=== PATIENT | female | born 1980 | race Two or more races ===

== ENCOUNTER 2018-01-19 11:16 | Emergency (ER) | payer OTHER | END 2018-01-19 15:25 | disposition home or self-care (01) | LOC: ER 11:16 | DX: M25.522 Pain in left elbow (principal) | CPT/HCPCS: 99283 ==

== ENCOUNTER 2019-06-23 22:55 | Emergency (ER) | payer OTHER ==
[~2019-06-23] VITALS: Ht 162.6 cm; Wt 49.9 kg
[~2019-06-23 22:55] MED LIST: OXYC1TAB15 PO
--- NOTE | 2019-06-23 23:11 | PHYS DOC ---
Adult General Chief Complaint Chief Complaint: HEADACHE HPI HPI Patient is a 38 year old female who presents to the ED today complaining of a throbbing 9-10 out of 10 posterior head pain and right frontal headache that b raisa 4 days ago. Patient is also complaining of photosensitivity and nausea. Denies any vomiting. She states she had tubal reversal surgery done 10 days ago, she states she called her doctor about her symptoms and was instructed to take [id number] allergy medicines. Patient denies this being the worst headache in her life. Review of Systems Review of Systems Constitutional: Denies fever or chills [] Eyes: Denies change in visual acuity, redness, or eye pain [] HENT: Denies nasal congestion or sore throat [] Respiratory: Denies cough or shortness of breath [] Cardiovascular: No additional information not addressed in HPI [] GI: Denies abdominal pain, nausea, vomiting, bloody stools or diarrhea [] : Denies dysuria or hematuria [] Musculoskeletal: Denies back pain or joint pain [] Integument: Denies rash or skin lesions [] Neurologic: Reports headache, denies focal weakness or sensory changes [] All other systems were reviewed and found to be within normal limits, except as documented in this note. Current Medications Current Medications Current Medications Medications (Trade) Dose Ordered Sig/Kimberly Start Time Stop Time Status Last Admin Dose Admin Dexamethasone Sodium Phosphate (Decadron) 4 mg 1X ONCE 06/23/19 23:30 06/23/19 23:31 DC 06/23/19 23:25 4 MG Diphenhydramine HCl (Benadryl) 25 mg 1X ONCE 06/23/19 23:30 06/23/19 23:31 DC 06/23/19 23:25 25 MG Prochlorperazine Edisylate (Compazine) 10 mg 1X ONCE 06/23/19 23:30 06/23/19 23:31 DC 06/23/19 23:25 10 MG Sodium Chloride 1,000 ml @ 1,000 mls/hr 1X ONCE 06/23/19 23:30 06/24/19 00:29 06/23/19 23:13 1,000 MLS/HR Allergies Allergies Allergies Coded Allergies Type Severity Reaction Last Updated Verified No Known Drug Allergies 01/19/18 No Physical Exam Physical Exam Constitutional: Well developed, well nourished, no acute distress, non-toxic appearance. [] HENT: Normocephalic, atraumatic, bilateral external ears normal, oropharynx moist, no oral exudates, nose normal. [] Eyes: PERRLA, EOMI, conjunctiva normal, no discharge. [] Neck: Normal range of motion, no tenderness, supple, no stridor. [] Cardiovascular:Heart rate regular rhythm, no murmur [] Lungs & Thorax: Bilateral breath sounds clear to auscultation [] Abdomen: Laparoscopic surgical scars noted on the abdomen consistent with tubal reversal procedure. No signs of infection on the surgical scars. Bowel sounds normal, soft, no tenderness, no masses, no pulsatile masses. [] Skin: Warm, dry, no erythema, no rash. [] Back: No tenderness, no CVA tenderness. [] Extremities: No tenderness, no cyanosis, no clubbing, ROM intact, no edema. [] Neurologic: Alert and oriented X 3, normal motor function, normal sensory function, no focal deficits noted. Cranial nerves II through XII intact Psychologic: Affect normal, judgement normal, mood normal. [] Current Patient Data Vital Signs Vital Signs Date Time Temp Pulse Resp B/P (MAP) Pulse Ox O2 Delivery O2 Flow Rate FiO2 06/23/19 23:00 97.4 68 18 141/67 (91) 99 Room Air 97.4 Lab Values Laboratory Tests Test 06/23/19 23:05 White Blood Count 9.3 x10^3/uL (4.0-11.0) Red Blood Count 4.17 x10^6/uL (3.50-5.40) Hemoglobin 11.7 g/dL (12.0-15.5) L Hematocrit 35.6 % (36.0-47.0) L Mean Corpuscular Volume 85 fL (79-100) Mean Corpuscular Hemoglobin 28 pg (25-35) Mean Corpuscular Hemoglobin Concent 33 g/dL (31-37) Red Cell Distribution Width 15.3 % (11.5-14.5) H Platelet Count 299 x10^3/uL (140-400) Neutrophils (%) (Auto) 69 % (31-73) Lymphocytes (%) (Auto) 18 % (24-48) L Monocytes (%) (Auto) 9 % (0-9) Eosinophils (%) (Auto) 2 % (0-3) Basophils (%) (Auto) 1 % (0-3) Neutrophils # (Auto) 6.5 x10^3/uL (1.8-7.7) Lymphocytes # (Auto) 1.7 x10^3/uL (1.0-4.8) Monocytes # (Auto) 0.8 x10^3/uL (0.0-1.1) Eosinophils # (Auto) 0.2 x10^3/uL (0.0-0.7) Basophils # (Auto) 0.1 x10^3/uL (0.0-0.2) Sodium Level 144 mmol/L (136-145) Potassium Level 3.8 mmol/L (3.5-5.1) Chloride Level 107 mmol/L (98-107) Carbon Dioxide Level 27 mmol/L (21-32) Anion Gap 10 (6-14) Blood Urea Nitrogen 12 mg/dL (7-20) Creatinine 1.0 mg/dL (0.6-1.0) Estimated GFR (Cockcroft-Gault) 61.7 BUN/Creatinine Ratio 12 (6-20) Glucose Level 94 mg/dL (70-99) Calcium Level 9.3 mg/dL (8.5-10.1) Total Bilirubin 0.3 mg/dL (0.2-1.0) Aspartate Amino Transferase (AST) 15 U/L (15-37) Alanine Aminotransferase (ALT) 17 U/L (14-59) Alkaline Phosphatase 62 U/L (46-116) Total Protein 7.5 g/dL (6.4-8.2) Albumin 3.8 g/dL (3.4-5.0) Albumin/Globulin Ratio 1.0 (1.0-1.7) Ethyl Alcohol Level < 10 mg/dL (0-10) Laboratory Tests 06/23/19 23:05 Laboratory Tests 06/23/19 23:05 EKG EKG [] Radiology/Procedures Radiology/Procedures []PROCEDURE: CT HEAD WO CONTRAST CT HEAD WO CONTRAST Date: 06/23/2019 11:06 PM Clinical Indication: Headache for 4 days Comparison: None. Technique: 5 mm axial tomographic images were obtained of the head without contrast. These were viewed on brain and bone windows. One or more of the following dose reduction techniques were utilized: Automated exposure control (AEC), Adjustment of mA and/or kV according to patient size, Use of iterative reconstruction technique such as ASiR, CT scan done according to ALARA and image gently/image wisely Findings: The brain parenchyma is normal in attenuation. No intra- or extra-axial mass or fluid collection. No acute hemorrhage. The ventricles are normal in size, shape, and morphology. The varela-white matter junction is normal. The subarachnoid cisterns are patent. The visualized paranasal sinuses are normal. The visualized portions of the orbits and globes are normal. The mastoid air cells are clear. The outside machinist topogram shows no lytic lesion or fracture. Impression: No acute intracranial process. Electronically signed by: Danny Ellis MD (06/23/2019 11:35 PM) [facility] DICTATED and SIGNED BY: DANNY ELLIS MD DATE: 06/23/19 5946 Course & Med Decision Making Course & Med Decision Making Pertinent Labs and Imaging studies reviewed. (See chart for details) This is a 38-year-old patient who presents to the ED today complaining of a headache that began 4 days ago. Patient labs are negative for any acute findings, CT of the head is negative. Patient was given Solu-Medrol, Compazine and Benadryl. Discharged to home. Instructed to continue taking [id number] remedies as needed. Given prescription for nausea medicine. Dragon Disclaimer Dragon Disclaimer This electronic medical record was generated, in whole or in part, using a voice recognition dictation system. Departure Departure Impression: Primary Impression: Headache Disposition: 01 HOME, SELF-CARE Condition: STABLE Referrals: HCANG MALDONADO MD (PCP) Follow up with your doctor in 1-2 weeks Patient Instructions: Headache, FAQs Additional Instructions: You were evaluated in the emergency room for a headache. You can take Tylenol/Motrin as needed for the headache. You can also keep taking your allergy medications, take the prescribed nausea medicine as needed. Follow-up with your own doctor in 1-2 weeks. Scripts Ondansetron (ONDANSETRON ODT) 4 Mg Tab.rapdis 1 TAB PO PRN Q6-8HRS, #16 TAB Prov: TISHA VAUGHAN WE[employer] MANAGEMENT MANAGER 06/23/19 Problem Qualifiers Primary Impression: Headache Headache type: unspecified Headache chronicity pattern: unspecified pattern Intractability: not intractable Qualified Codes: R51 - Headache ARJUNTISHA MARTINEZ CRISTAL Jun 23, 2019 23:11
[2019-06-23 23:17] LABS: BASO # 0.1 x10^3/uL (0.0-0.2); BASO % 1 % (0-3); EOS # 0.2 x10^3/uL (0.0-0.7); EOS % 2 % (0-3); HEMATOCRIT 35.6 % (36.0-47.0); HEMOGLOBIN 11.7 g/dL (12.0-15.5); LYMPH # 1.7 x10^3/uL (1.0-4.8); LYMPH % 18 % (24-48); MEAN CORPUSCULAR HEMOGLOBIN 28 pg (25-35); MEAN CORPUSCULAR HGB CONC 33 g/dL (31-37); MEAN CORPUSCULAR VOLUME 85 fL (79-100); MONO # 0.8 x10^3/uL (0.0-1.1); MONO % 9 % (0-9); NEUT # 6.5 x10^3/uL (1.8-7.7); NEUT % 69 % (31-73); PLATELET COUNT 299 x10^3/uL (140-400); RED BLOOD COUNT 4.17 x10^6/uL (3.50-5.40); RED CELL DISTRIBUTION WIDTH 15.3 % (11.5-14.5); WHITE BLOOD COUNT 9.3 x10^3/uL (4.0-11.0)
[2019-06-23 23:23] LABS: CALCIUM 9.3 mg/dL (8.5-10.1); GFR 61.7; POTASSIUM 3.8 mmol/L (3.5-5.1)
[2019-06-23 23:28] LABS: ALBUMIN 3.8 g/dL (3.4-5.0); TOTAL BILIRUBIN 0.3 mg/dL (0.2-1.0); TOTAL PROTEIN 7.5 g/dL (6.4-8.2)
[2019-06-23] MEDS ORDERED: DEXAMETHASONE SOD PHOS 4 MG/ML VIAL IV ONE (23:30)
[2019-06-23] MEDS ORDERED: diphenhydrAMINE HCL 25 MG CAPSULE PO ONE (23:30)
[2019-06-23] MEDS ORDERED: PROCHLORPERAZINE 10 MG/2 ML VIAL. IV ONE (23:30)
[2019-06-23] MEDS ORDERED: IV NORMAL SALINE 1000ML BAG 1,000 ML IV ONE (23:30)
--- NOTE | 2019-06-23 23:38 | RAD ---
CT HEAD WO CONTRAST Date: 06/23/2019 11:06 PM Clinical Indication: Headache for 4 days Comparison: None. Technique: 5 mm axial tomographic images were obtained of the head without contrast. These were viewed on brain and bone windows. One or more of the following dose reduction techniques were utilized: Automated exposure control (AEC), Adjustment of mA and/or kV according to patient size, Use of iterative reconstruction technique such as ASiR, CT scan done according to ALARA and image gently/image wisely Findings: The brain parenchyma is normal in attenuation. No intra- or extra-axial mass or fluid collection. No acute hemorrhage. The ventricles are normal in size, shape, and morphology. The varela-white matter junction is normal. The subarachnoid cisterns are patent. The visualized paranasal sinuses are normal. The visualized portions of the orbits and globes are normal. The mastoid air cells are clear. The fishing rod marker topogram shows no lytic lesion or fracture. Impression: No acute intracranial process. Electronically signed by: Nile Ellis MD (06/23/2019 11:35 PM) [facility]
[2019-06-23] MEDS ORDERED: ONDA4TAB12 PO (23:49)
[2019-06-24] VITALS: BP 111/54
== END 2019-06-24 00:15 | disposition home or self-care (01) ==
LOC: ER 22:55
DX: R51 Headache (principal); R11.0 Nausea; L56.8 Other specified acute skin changes due to ultraviolet radiation
CPT/HCPCS: 36415; 70450; 80053; 85025; 96374; 96375; 99285; G0480; J0780; J1100; J7030; Q0163

== ENCOUNTER → 2019-10-17 | Outpatient (CLI) | payer OTHER ==
[~2019-10-17] MED LIST changes: +NAPR-514 PO; +ONDA4TAB12 PO
--- NOTE | 2019-10-17 13:33 | PAIN ---
DATE OF SERVICE: 10/17/2019 INITIAL CONSULTATION FOR PAIN CLINIC CHIEF COMPLAINT: Neck and left upper extremity pain. HISTORY OF PRESENT ILLNESS: This is a 39-year-old female who presents with history of pain starting on 08/30/2019 by her report, was injured while working at [employer]. The patient reports she has been feeling fairly well until that day. She was reaching, lifting and doing some repetitive motions with heavier weighted parcels and items at work with her left arm, has significant pain at that time in the base of the neck, shooting into the left arm, anterior deltoid, biceps, lateral deltoid and triceps, also into the anterior forearm both anteriorly and posteriorly with some numbness and tingling in the hand involving the thumb and especially the 1st, 2nd and 3rd fingers. The patient reports now it is constant, sharp, stabbing, throbbing, shooting in the left arm, tingling with radiation as noted, worse at night, feels cold as well. The patient reports it awakens her from sleep at least 4-5 times each night, does not affect her bowel or bladder control or ability to walk. The patient reports she is currently not working secondary to the pain. The patient did have physical therapy in the past, but that is for elbow injury which was also work-related by her report on the left side. The patient has been taking naproxen 500 mg twice a day, which helps she reports by a small amount. The patient has not tried any other therapies or other medications at this time. The patient did have MRI scan of cervical spine showing C6-C7 large left paracentral disk osteophyte complex in the neural foramen causing stenosis and C5-C6 right and left disk osteophyte complex noted on the right with greater than right neural foraminal encroachment at that level with tiny annular tears and/or bulging at C3-C4 and C4-C5 as well. The patient rates her disability rating from 0-10, 10 being the worst, is an 8 with family home responsibilities, social activity, sexual behavior, self-care and life support activities, 10 with recreation and occupational activities. CURRENT MEDICATIONS: Include naproxen twice daily 500 mg. ALLERGIES: The patient has no known drug allergies. FAMILY HISTORY: Significant for no major medical problems or conditions that she lists. SOCIAL HISTORY: The patient does not drink alcohol, does not smoke, does not use any illegal, illicit or recreational drugs. She is , lives with her spouse, has one child, living at home, lives locally in [place], [place]. Again, works for [employer]. REVIEW OF SYSTEMS: The patient's review of systems is positive for those items mentioned in history of present illness. All systems reviewed and otherwise negative. It is complete, full and well documented on the patient's chart. PHYSICAL EXAMINATION: VITAL SIGNS: The patient's blood pressure is 121/82, pulse 76, respirations 16, temperature is 97.8 degrees Fahrenheit, height is 5 feet 2 inches and weight is 117 pounds. GENERAL: The patient is awake, alert, oriented, appropriate, very pleasant demeanor. HEENT: Shows normocephalic, atraumatic. Extraocular movements are intact and symmetrical. Oral cavity: Mucous membranes moist and pink. Dentition is intact. NECK: Shows anterior throat supple without palpable lymphadenopathy noted. Swallow reflex symmetrical. CHEST: Shows normal on inspection. Breath sounds are clear to auscultation bilaterally. HEART: Shows S1, S2 clear. No murmurs auscultated. ABDOMEN: Soft, nontender, nondistended. No palpable organomegaly is noted. BACK: Shows spine grossly in the midline. Normal-appearing thoracic kyphosis, cervical lordotic curvature and lumbar lordotic curvature. Cervical paraspinous muscle shows symmetrical on inspection, with palpation shows some moderate tenderness diffusely bilaterally throughout the upper, middle and lower distribution of paraspinous muscles, slightly more on the left than the right and certainly more with palpation in the left trapezius and superior medial trapezius on the left side than the right. The patient shows some significant guarding with rotational motion of cervical spine and reports significant pain with both right and left lateral rotation, especially with extension on the left side. Forward flexion is performed without significant increase in pain. EXTREMITIES: The patient's upper extremities show deep tendon reflexes 2+ in the biceps and triceps tendons. Motor exam is approximately 4 on a scale of 5 with alarm mechanism adjuster strength, bicep and tricep flexion on the left, 5/5 on the right. Peripheral pulses are 2+ in radial distribution. No peripheral edema is noted. Shoulder shrug is strong and intact without loss of strength on resistance with significant pain reported with resistance on the left side. This is true with abduction of the shoulders at 90 degrees with both extension and flexion and resistance at the left shoulder with pain in the base of neck and shoulder radiating to the anterior bicep. No such pain or loss of resistance on the right side. The patient's skin shows warm and dry, good turgor. No edema. No sores, rashes or bruising throughout. IMPRESSION: 1. This is a 39-year-old female with injury reportedly at work on 08/30/2019 with significant pain in the base of the neck and left upper extremity as described. 2. MRI scan of cervical spine as noted. PLAN: Options were discussed with the patient including conservative medical managements, continued physical therapies, interventional techniques and she would like to pursue interventional techniques as she has had physical therapy before without significant improvement for her left arm. We discussed a cervical epidural steroid injection using description as well as anatomical models to describe the procedure. The patient will wait for preauthorization with her insurance provider. In the meantime, we will try Medrol Dosepak. The patient was given instruction as well as side effects to be aware of with the medication. We will have her follow up for her clinical C6-C7 radiculopathy on the left for a translaminar cervical epidural steroid injection at C6-C7 level with fluoroscopic guidance. The patient will return to the clinic as scheduled. We will plan on cervical epidural steroid injection at that time. ZULEMA SUAREZ MD DR: MARK/ana JOB#: [id number] / [id number]
== END | disposition home or self-care (01) ==
LOC: PNCL 10:18
PROVIDERS: ATTEND Anesthesiology
DX: M48.02 Spinal stenosis, cervical region (principal); M79.602 Pain in left arm; M25.78 Osteophyte, vertebrae; Z79.899 Other long term (current) drug therapy
CPT/HCPCS: G0463

== ENCOUNTER → 2019-10-31 | Outpatient (CLI) | payer OTHER ==
[~2019-10-31] MED LIST changes: +IOHEXOL 180 MG/ML 10 ML VIAL. ONE; +methylPREDNISolone ACETATE 40 MG/ML VIAL. ONE; +methylPREDNISolone ACETATE 80 MG/ML VIAL. ONE
--- NOTE | 2019-10-31 09:52 | PAIN ---
DATE OF SERVICE: 10/31/2019 PROGRESS NOTE FOR PAIN CLINIC DIAGNOSES: Cervical radiculopathy with cervical degenerative disk disease and cervical herniated disk. HISTORY OF PRESENT ILLNESS: The patient is a 39-year-old female who returns for followup status post initial evaluation and preauthorization for cervical epidural steroid injection. The patient has obtained that now and would like to proceed. The patient reports still significant pain in the base of the neck, left upper extremity as it was previously. The patient reports the Medrol Dosepak that we had given her, helped only minimally after 6 days of taking that. The patient reports the pain is now 7-8 on a scale of 10 on average and 8 at its worst, 7 at its least and is a 7 today. The patient reports it is aching, sharp, shooting, tight, cramping and stabbing in the base of neck and into the left upper extremity, it is becoming more constant. The patient reports no new motor or sensory deficits, no new changes. PHYSICAL EXAMINATION: VITAL SIGNS: The patient's blood pressure 131/82, pulse 80, respirations 16, temperature is 98.3 degrees Fahrenheit, and weight is 122 pounds. GENERAL: The patient is awake, alert, oriented, appropriate, very pleasant demeanor. HEENT: Shows normocephalic, atraumatic. Extraocular movements are intact and symmetrical. Oral cavity: Mucous membranes moist and pink. Dentition is intact. NECK: Shows anterior throat supple without palpable lymphadenopathy noted. Swallow reflex symmetrical. CHEST: Shows normal on inspection. Breath sounds are clear to auscultation bilaterally. HEART: Shows S1, S2 clear. No murmurs auscultated. ABDOMEN: Soft, nontender and nondistended. No palpable organomegaly is noted. No rebound or guarding demonstrated. BACK: Shows spine grossly in the midline. Cervical paraspinous muscle shows symmetrical on inspection, with palpation shows some [id number] tenderness in the inferior aspect of the cervical paraspinous musculature as well as into the left superior medial trapezius, more than the right without specific radiation, without trigger points. The patient does show limited rotational motion with some significant guarding with cervical rotation as well as extension and flexion all of which are fairly significantly tender bilaterally. EXTREMITIES: The patient's upper extremities show deep tendon reflexes 2+ in the biceps and triceps tendons. Motor exam is strong with 4 on a scale of 5 with left composing machine operator strength, bicep and tricep flexion and 5/5 on the right. Peripheral pulses are 2+ radial distribution. No peripheral edema is noted bilaterally. Options were discussed with the patient. The patient's old chart was reviewed as her current medication regimen updated. Current review of systems updated today as well. We will proceed with a cervical epidural steroid injection today. Risks were again discussed including, but not limited to bleeding, infection, possibility of epidural hematoma, subsequent neurological compromise, dural puncture, headaches, spinal cord and/or nerve damage, side effects of steroid medication and poor results regarding pain control. The patient understands and wished to proceed. The patient will return to clinic in approximately 2 weeks for followup. She was counseled on return appointment, activity level and side effects to be aware of. DIAGNOSES: Cervical radiculopathy with cervical degenerative disk disease and cervical herniated disk. PROCEDURES: Cervical epidural steroid injection, translaminar approach at C6-C7 level using C-arm fluoroscopic guidance under sterile prep and drape using local anesthetic. MEDICATION INJECTED: A total of 120 mg of Depo-Medrol plus 5 mL of preservative-free normal saline and 2 mL of contrast. CONDITION AT DISCHARGE: Stable. The patient tolerated the procedure well, had no complications. ZULEMA SUAREZ MD DR: MARK/ana JOB#: [id number] / [id number]
== END ==
LOC: PNCL 08:50
PROVIDERS: ATTEND Anesthesiology
DX: M50.123 Cervical disc disorder at C6-C7 level with radiculopathy (principal)
CPT/HCPCS: 62321; J1030; J1040; Q9965

== ENCOUNTER → 2019-11-14 | Outpatient (CLI) | payer OTHER ==
[~2019-11-14] MED LIST changes: +GABA-585 PO; -IOHEXOL 180 MG/ML 10 ML VIAL. ONE; -methylPREDNISolone ACETATE 40 MG/ML VIAL. ONE; -methylPREDNISolone ACETATE 80 MG/ML VIAL. ONE
--- NOTE | 2019-11-14 09:21 | PAIN ---
DATE OF SERVICE: 11/14/2019 PROGRESS NOTE FOR PAIN CLINIC DIAGNOSES: Cervical radiculopathy with cervical degenerative disk disease and cervical herniated disk. HISTORY OF PRESENT ILLNESS: The patient is a 39-year-old female who returns for followup status post cervical epidural steroid injection x 1. The patient reports 75-80% improvement initially, pain returning now, but initially she was doing increased activity at home, doing household activities with greater ease and comfort, sleeping with greater ease, using her left upper extremity much greater ease and more normal and comfort. The patient reports after about 2 weeks, the pain began to return in the left upper extremity and shoulder, now radiating into the hand into the wrist on the left side, which is aching and sharp, described as tight, shooting, stabbing, burning, radiating, becoming more constant in the left arm. The patient is quite discouraged that the pain is returning now. The patient reports it is 8 on a scale of 10 at its worst over the past week, 7-8 on average and is a 7 today and a 7 at its least. The patient reports no new motor or sensory deficits, no new changes, still radicular pain in the left upper extremity as noted. PHYSICAL EXAMINATION: VITAL SIGNS: The patient's blood pressure is 118/78, pulse 83, respirations 18, temperature 98.2 degrees Fahrenheit, weight is 123 pounds. GENERAL: The patient is awake, alert, oriented, appropriate, very pleasant demeanor. HEENT: Head shows normocephalic, atraumatic. Extraocular movements are intact and symmetrical. Oral cavity: Mucous membranes moist and pink. NECK: Shows anterior throat supple. CHEST: Shows breath sounds clear. HEART: Shows S1, S2 clear. ABDOMEN: Soft, nontender. EXTREMITIES: Upper extremities show deep tendon reflexes 2+ in the biceps, triceps tendons. Motor exam is approximately 4 on a scale of 5 with left finished goods planner strength, bicep and tricep flexion and 5/5 on the right. Peripheral pulses are 2+ radial distribution. No peripheral edema bilaterally. Shoulder shrug is strong and intact again with some moderate pain with resistance on the left, but no loss of strength on resistance. PLAN: Options were discussed with the patient. The patient's old chart was reviewed as her current medication regimen updated. Current review of systems updated today as well. We will preauthorize the patient for a second cervical epidural steroid injection. She did very well after the first injection. The pain returning now with radicular pain in the C6-C7 dermatomal distribution on the left side. We will plan on second cervical epidural steroid injection, translaminar approach at the C6-C7 level after authorization. The patient will maintain stretching and strengthening exercises as she is currently doing and return for a second cervical epidural steroid injection once approved. ZULEMA SUAREZ MD DR: MARK/ana JOB#: [id number] / [id number]
== END | disposition home or self-care (01) ==
LOC: PNCL 08:53
PROVIDERS: ATTEND Anesthesiology
DX: M50.10 Cervical disc disorder with radiculopathy, unspecified cervical region (principal)
CPT/HCPCS: G0463

== ENCOUNTER → 2019-11-28 | Outpatient (CLI) | payer OTHER ==
[~2019-11-28] MED LIST changes: +IOHEXOL 180 MG/ML 10 ML VIAL. ONE; +PREN1TAB58 PO; +methylPREDNISolone ACETATE 40 MG/ML VIAL. ONE; +methylPREDNISolone ACETATE 80 MG/ML VIAL. ONE
--- NOTE | 2019-11-28 10:43 | PAIN ---
DATE OF SERVICE: 11/28/2019 PROGRESS NOTE FOR PAIN CLINIC DIAGNOSES: Cervical radiculopathy with cervical degenerative disk disease and cervical herniated disk. HISTORY OF PRESENT ILLNESS: The patient is a 39-year-old female who returns for followup status post cervical epidural steroid injection x 1 with good improvement, about 75% to 80% improvement for the first 3 days. Now, the pain is about 50% improved but still pain in the base of the neck and left upper extremity. The patient reports it is becoming worse with time, rated over the past week a 9 on a scale of 10 at its worst, 8 on average, 7 at its least, and is an 8 today. The patient reports it is stabbing, aching, dull, tight, and shooting in the left arm, constant, and becoming more severe with any repetitive motions, lifting items with the left arm, reaching forward, or any fine motor movements of the left hand as well. It is becoming more difficult. The patient reports no new motor or sensory deficits. PHYSICAL EXAMINATION: VITAL SIGNS: The patient's blood pressure is 128/83, pulse 88, respirations 16, temperature is 98.1 degrees Fahrenheit, height is 5 feet 2 inches, and weight is 124 pounds. GENERAL: The patient is awake, alert, oriented, and appropriate with very pleasant demeanor. HEENT: Normocephalic and atraumatic. Extraocular movements are intact and symmetrical. Oral cavity: Mucous membranes are moist and pink. Dentition is intact. NECK: Anterior throat supple without palpable lymphadenopathy noted. Swallow reflex symmetrical. CHEST: Normal on inspection. Breath sounds are clear to auscultation bilaterally. HEART: S1, S2 clear. No murmurs auscultated. ABDOMEN: Soft, nontender, and nondistended. No palpable organomegaly is noted. MUSCULOSKELETAL: Back shows spine grossly in the midline. Cervical paraspinous muscle shows symmetrical on inspection and on palpation shows some moderate tenderness diffusely throughout the upper, middle, and lower distribution of paraspinous muscles bilaterally, slightly more on the left than the right into the superior medial trapezius, more tender as well, but only diffusely without radiation. The patient has good rotational motion of cervical spine, both laterally as well as extension and flexion without significant increase in pain. EXTREMITIES: The patient's upper extremities show deep tendon reflexes at 2+ in the biceps and triceps tendons. Motor exam is approximately 4 on a scale of 5 on the left with cloth doffer strength, bicep and tricep flexion, and 5/5 on the right. Peripheral pulses are 2+ bilaterally. No peripheral edema is noted. Options were discussed with the patient. The patient's old chart was reviewed and her current medication regimen updated. Current review of systems updated today as well. We will proceed with a second in the series of cervical epidural steroid injection today with fluoroscopic guidance. Risks were again discussed including but not limited to bleeding, infection, possibility of epidural hematoma, subsequent neurological compromise, dural puncture, headaches, spinal cord and/or nerve damage, side effects of steroid medication and poor results regarding pain control. The patient understands and wishes to proceed. The patient will return to clinic in approximately 2 weeks for followup. She was counseled on return appointment, activity level, and side effects to be aware of. DIAGNOSES: Cervical radiculopathy with cervical degenerative disk disease and cervical herniated disk. PROCEDURE: Cervical epidural steroid injection, translaminar approach, C6-C7 level using C-arm fluoroscopic guidance under sterile prep and drape using local anesthetic. MEDICATION INJECTED: A total of 120 mg of Depo-Medrol plus 5 mL of preservative-free normal saline and 2 mL of contrast. CONDITION AT DISCHARGE: Stable. The patient tolerated the procedure well and had no complications. ZULEMA SUAREZ MD DR: MARK/ana JOB#: [id number] / [id number]
== END ==
LOC: PNCL 08:42
PROVIDERS: ATTEND Anesthesiology
DX: M50.123 Cervical disc disorder at C6-C7 level with radiculopathy (principal)
CPT/HCPCS: 62321; J1030; J1040; Q9965

== ENCOUNTER → 2019-12-12 | Outpatient (CLI) | payer OTHER ==
[~2019-12-12] MED LIST changes: -IOHEXOL 180 MG/ML 10 ML VIAL. ONE; -methylPREDNISolone ACETATE 40 MG/ML VIAL. ONE; -methylPREDNISolone ACETATE 80 MG/ML VIAL. ONE
--- NOTE | 2019-12-12 09:37 | PAIN ---
DATE OF SERVICE: 12/12/2019 PROGRESS NOTE FOR PAIN CLINIC DIAGNOSES: Cervical radiculopathy with cervical degenerative disk disease and cervical herniated disk. HISTORY OF PRESENT ILLNESS: The patient is a 39-year-old female, who returns for followup status post cervical epidural steroid injection x 2. The patient reports the pain is improved, but only very intermittently. It took several days to decrease the pain by total of about 50 overall. The patient reports the pain is returning now fairly significantly in the base of the neck, left shoulder, left upper extremity, left arm, biceps and anterior forearm as well as into the hand with some numbness and tingling as well. The patient reports it is aching, sharp, tight, shooting, burning, and becoming more constant with activity. The patient reports significant difficulty with raising her hand over her head on the left side with any weightbearing whatsoever with the left arm and repetitive motions. The patient reports difficulty getting dressed in the morning, put her arm through a sleeve as the pain is significant and awakened her from sleep intermittently as well. The patient reports her pain is an 8 on a scale of 10 at its worst over the past week, 6-7 on average, 6 at its least and is a 7 today. The patient reports no new motor or sensory deficits, but still significant weakness in the left arm. PHYSICAL EXAMINATION: VITAL SIGNS: The patient's blood pressure is 132/77, pulse 80, respirations 16, temperature is 98.1 degrees Fahrenheit, height is 5 feet 2 inches, weight is 130 pounds. GENERAL: The patient is awake, alert, oriented, appropriate. She has very pleasant demeanor. HEENT: Shows normocephalic, atraumatic. Extraocular movements are intact and symmetrical. Oral cavity: Mucous membranes moist and pink. Dentition is intact. NECK: Shows anterior throat supple without palpable lymphadenopathy noted. Swallow reflex symmetrical. CHEST: Shows normal on inspection. Breath sounds are clear bilaterally. HEART: Shows S1, S2 clear. ABDOMEN: Soft, nontender, nondistended. BACK: Shows spine grossly in the midline. Cervical paraspinous muscle shows symmetrical on inspection, with palpation shows some moderate tenderness diffusely in the left greater than right inferior cervical paraspinous musculature as well as the left superior medial trapezius, but less on the right. The patient shows good rotational motion of cervical spine with some guarding with far left lateral rotation past 45 degrees. Good extension and flexion without significant increase in pain. EXTREMITIES: Upper extremities show deep tendon reflexes at 2+ in the biceps and triceps tendons. Motor exam is approximately 4 on a scale of 5 on the left and 5/5 on the right. Peripheral pulses are 2+ radial. No peripheral edema is noted bilaterally. Options were discussed with the patient. The patient's old chart was reviewed as her current medication regimen updated. Current review of systems updated today as well and we will re-preauthorize the patient for a third cervical epidural steroid injection. She also has clinical radiculopathy in the C6-7 dermatomal distribution on the left arm, better after the last injection, but the pain is returning now fairly significantly after it has been about 3 weeks since her last injection. The patient would like to proceed with a third injection. We did discuss possibility of a neurosurgical consultation and evaluation if not significantly better after next injection; the patient is agreeable to this. We will have her preauthorized to have her return for translaminar approach C6-C7 level, cervical epidural steroid injection #3. The patient will continue with stretching and strengthening exercises in the meantime, maintain mobility as best possible and follow up as scheduled. ZULEMA SUAREZ MD DR: MARK/ana JOB#: [id number] / [id number]
== END | disposition home or self-care (01) ==
LOC: PNCL 08:09
PROVIDERS: ATTEND Anesthesiology
DX: M50.10 Cervical disc disorder with radiculopathy, unspecified cervical region (principal)
CPT/HCPCS: G0463

== ENCOUNTER → 2020-01-02 | Outpatient (CLI) | payer OTHER ==
[~2020-01-02] MED LIST changes: +IOHEXOL 180 MG/ML 10 ML VIAL. ONE; +methylPREDNISolone ACETATE 40 MG/ML VIAL. ONE; +methylPREDNISolone ACETATE 80 MG/ML VIAL. ONE
--- NOTE | 2020-01-02 10:44 | PAIN ---
DATE OF SERVICE: 01/02/2020 PROGRESS NOTE FOR PAIN CLINIC HISTORY OF PRESENT ILLNESS: The patient is a 39-year old female who returns for followup status post cervical epidural steroid injections x 2. The patient reports about only 10% improvement overall in the base of neck and right upper extremity pain. The patient reports still significant pain with any weightbearing, any reaching over her head or forward, any repetitive motions with the right arm, reaching overhead with her right hand especially and any weightbearing activities. The patient reports it is an 8 on a scale of 10 at its worst over the past week, 7 on average, 7-8 at its least and is a 7 today. The patient reports it is aching, sharp, tight, burning, cramping, becoming more constant in the right shoulder and arm, difficulty with sleeping, awakens her from sleep about every 5 hours or so. PHYSICAL EXAMINATION: VITAL SIGNS: The patient's blood pressure 142/64, pulse 94, respirations 18, temperature 98.4 degrees Fahrenheit, height is 5 feet 2 inches and weight is 152 pounds. GENERAL: The patient is awake, alert, oriented, appropriate, very pleasant demeanor. HEENT: Exam shows normocephalic, atraumatic. Extraocular movements are intact and symmetrical. Oral cavity shows mucous membranes moist and pink. Dentition is intact. NECK: Shows anterior throat supple. CHEST: Shows normal on inspection. Breath sounds are clear bilaterally. HEART: Shows S1, S2 clear. ABDOMEN: Soft, nontender. BACK: Shows spine grossly in the midline. Cervical paraspinous muscle shows symmetrical with normal cervical lordotic curvature, with palpation shows some significant tenderness in the middle and lower distribution of the cervical paraspinous musculature, more on the right than the left into the superior medial trapezius on the right greater than left without specific trigger points or radiation. The patient just shows some guarded rotation of motion, especially right lateral to 45 degrees as well as extension and forward flexion with some pulling sensation reported on the right trapezius and the base of the neck, but not with radiation in the right upper extremity with these maneuvers. EXTREMITIES: The patient's upper extremities show deep tendon reflexes 2+ in the biceps, triceps tendons. Motor exam is approximately 4 on a scale of 5 on the left, 5/5 on the right. Peripheral pulses are 2+ bilaterally radial. No peripheral edema is noted. Options were discussed with the patient. The patient's old chart was reviewed as her current medication regimen updated. Current review of systems updated today as well. We will proceed with a third cervical epidural steroid injection today with fluoroscopic guidance. Risks were discussed including but not limited to bleeding, infection, possibility of epidural hematoma, subsequent neurological compromise, dural puncture, headaches, spinal cord and/or nerve damage, side effects of steroid medication and poor results regarding pain control. The patient understands and wished to proceed. The patient will return to clinic in approximately 2 weeks for followup, was counseled as to the return appointment, activity level and side effects to be aware of. We also discussed possibility of a neurosurgical referral if not significantly improve, as patient does have a clinical radiculopathy with herniated cervical disk, which may need a surgical evaluation. The patient understands. DIAGNOSES: Cervical radiculopathy with cervical degenerative disk disease and cervical herniated disk. PROCEDURE: Cervical epidural steroid injection, translaminar approach at C6-C7 level using C-arm fluoroscopic guidance under sterile prep and drape using local anesthetic. MEDICATION INJECTED: A total of 120 mg Depo-Medrol plus 5 mL of preservative-free normal saline and 2 mL of contrast. CONDITION AT DISCHARGE: Stable. The patient tolerated the procedure well, had no complications. ZULEMA SUAREZ MD DR: MARK/ana JOB#: [id number] / [id number]
== END ==
LOC: PNCL 08:55
PROVIDERS: ATTEND Anesthesiology
DX: M50.123 Cervical disc disorder at C6-C7 level with radiculopathy (principal)
CPT/HCPCS: 62321; J1030; J1040; Q9965

== ENCOUNTER → 2020-03-19 | Outpatient (CLI) | payer OTHER ==
[~2020-03-19] MED LIST changes: +DOCU-153 PO; +HYDR-2761 PO; -IOHEXOL 180 MG/ML 10 ML VIAL. ONE; +METH750T2 PO; -methylPREDNISolone ACETATE 40 MG/ML VIAL. ONE; -methylPREDNISolone ACETATE 80 MG/ML VIAL. ONE
[2020-03-19 15:01] LABS: BASO # 0.1 x10^3/uL (0.0-0.2); BASO % 1 % (0-3); EOS # 0.1 x10^3/uL (0.0-0.7); EOS % 1 % (0-3); HEMATOCRIT 38.6 % (36.0-47.0); LYMPH # 1.4 x10^3/uL (1.0-4.8); LYMPH % 13 % (24-48); MEAN CORPUSCULAR HEMOGLOBIN 29 pg (25-35); MEAN CORPUSCULAR HGB CONC 34 g/dL (31-37); MEAN CORPUSCULAR VOLUME 86 fL (79-100); MONO # 0.9 x10^3/uL (0.0-1.1); MONO % 8 % (0-9); NEUT # 7.9 x10^3/uL (1.8-7.7); NEUT % 76 % (31-73); PLATELET COUNT 271 x10^3/uL (140-400); RED CELL DISTRIBUTION WIDTH 14.8 % (11.5-14.5); WHITE BLOOD COUNT 10.5 x10^3/uL (4.0-11.0)
[2020-03-19 15:26] LABS: ALBUMIN 3.4 g/dL (3.4-5.0); ALBUMIN/GLOBULIN RATIO 0.9 (1.0-1.7); CALCIUM 8.4 mg/dL (8.5-10.1); CREATININE 1.2 mg/dL (0.6-1.0); GFR 49.8; POTASSIUM 3.4 mmol/L (3.5-5.1); TOTAL BILIRUBIN 0.2 mg/dL (0.2-1.0); TOTAL PROTEIN 7.2 g/dL (6.4-8.2)
== END | disposition home or self-care (01) ==
LOC: SURGPAT 14:22
PROVIDERS: ATTEND Neurological Surgery
DX: Z01.818 Encounter for other preprocedural examination (principal); Z11.59 Encounter for screening for other viral diseases; M50.123 Cervical disc disorder at C6-C7 level with radiculopathy
CPT/HCPCS: 36415; 80053; 85025; 87641; U0003

== ENCOUNTER 2020-03-22 06:56 | Observation (INO) | payer OTHER ==
--- NOTE | 2020-03-21 15:28 | PREOP HP ---
DATE OF SERVICE: 03/22/2020 PREOPERATIVE HISTORY AND PHYSICAL DATE OF SURGERY: 03/22/2020 HISTORY OF PRESENT ILLNESS: The patient is a pleasant 39-year-old woman, who is having difficulty with neck and left arm pain. The pain is in the neck and the left medial scapular area, which radiates across her left shoulder down the left arm and forearm to involve primarily the thumb and index finger on her left hand. The problem started in 09/2019. She states she was lifting and developed acute pain. She said that her left arm feels weak in general. She rates her pain as an 8/10. It is constant. Lying down helps her. Standing makes the problem worse. She takes naproxen. She has had 3 cervical epidural steroid injections without benefit. PAST MEDICAL HISTORY: None noted. PAST SURGICAL HISTORY: An elbow surgery in 2018. FAMILY HISTORY: Noncontributory. SOCIAL HISTORY: and does not drink alcohol. ALLERGIES: No known drug allergies. CURRENT MEDICATIONS: Naproxen. REVIEW OF SYSTEMS: A 12-point review of systems was obtained and is noncontributory except for that mentioned above. PHYSICAL EXAMINATION: GENERAL APPEARANCE: On neurosurgical examination, alert, pleasant, no acute distress. HEENT: Head is normocephalic and atraumatic. SKIN: Warm and dry. NECK AND THYROID: Tenderness to palpation in the posterior cervical region. MUSCULOSKELETAL: Cervical range of motion is restricted. Cervical paraspinal muscle bulk is normal with normal range of motion of the upper extremities bilaterally. EXTREMITIES: No clubbing, cyanosis, or edema. NEUROLOGIC: Alert and oriented x3. Speech is clear. Strength is 5/5 in the upper and lower extremities bilaterally except for 4/5 strength in left triceps. Sensory is intact to light touch in the upper and lower extremities except for decrease in the left thumb and index finger. Reflexes are trace and symmetric in the upper and lower extremities. Normal gait. IMAGING: I reviewed her cervical MRI scan from 09/19/2019. On that study at C6-C7, there is a large left-sided paracentral disc osteophyte complex with associated left neuroforaminal narrowing. She does have, at C5-C6, bilateral smaller disc osteophyte complexes present. This is greater on the right than the left. It was associated with right neuroforaminal narrowing. ASSESSMENT/ PLAN: At this point, she has a significant radiculopathy and has failed conservative measures. There is a large left-sided herniated disc at C6-C7. At this point, I feel she should undergo an anterior cervical discectomy and fusion. I spoke with both the patient and her about the surgery and the risks involved. I outlined the use of an anterior plate. I spoke about the risks of the operation including , stroke, and injuries to the trachea and esophagus. She would like for me to go ahead and proceed with surgery. We will make the arrangements. ISMAEL FLAHERTY MD DR: TODD/ana JOB#: [id number] / [id number]
[~2020-03-22] VITALS: Ht 157.5 cm; Wt 65.1 kg
[~2020-03-22 06:56] MED LIST changes: +BACITRACIN 50,000 UNIT in IV NORMAL SALINE 1000ML BAG 1,000 ML IRR ONE; +DEXAMETHASONE SOD PHOS 20 MG/5 ML VIAL. ONE; -DOCU-153 PO; -HYDR-2761 PO; +LIDOCAINE 2% PF 5 ML VIAL. ONE; -METH750T2 PO; +ONDANSETRON PF 4 MG/2 ML VIAL. ONE; +PHENYLEPHRINE in 0.9% NACL PF 1 MG/10 ML SYRINGE. IV ONE; +PROPOFOL 0 ML IV ONE; +PROPOFOL 10 MG/ML (20ML) VIAL. IV ONE; +REMIFENTANIL 2 MG VIAL. IV ONE; +ROCURONIUM 50 MG/5 ML VIAL. ONE; +SUCCINYLCHOLINE 200 MG/10 ML VIAL. ONE
[2020-03-22] MEDS ORDERED: fentaNYL PF VIAL 100 MCG/2 ML VIAL IV PRN (07:00)
[2020-03-22] MEDS ORDERED: ONDANSETRON PF 4 MG/2 ML VIAL. IV PRN (07:00)
[2020-03-22] MEDS ORDERED: PROCHLORPERAZINE 10 MG/2 ML VIAL. IV PRN (07:00)
[2020-03-22] MEDS ORDERED: IV RINGERS,LACTATED 1000ML 1,000 ML IV SCH (07:00)
[2020-03-22] MEDS ORDERED: BUPIVACAINE-EPI 0.5%-1:200000 MPF 30 ML VIAL. ONE (07:13)
[2020-03-22] MEDS ORDERED: THROMBIN TOPICAL 20,000 UNIT SPRAY.SYRN KIT TP ONE (07:13)
[2020-03-22] MEDS ORDERED: GELATIN SPONGE SIZE 100. ONE (07:13)
[2020-03-22] MEDS ORDERED: fentaNYL PF VIAL 100 MCG/2 ML VIAL ONE ×2 (08:44→11:16)
[2020-03-22] MEDS ORDERED: MIDAZOLAM HCL/PF 2 MG/2 ML VIAL. ONE (08:44)
[2020-03-22] MEDS ORDERED: GLYCOPYRROLATE 1 MG/5 ML VIAL. ONE (09:18)
[2020-03-22] MEDS ORDERED: NEOSTIGMINE METHYLSULFATE 5 MG/5 ML SYRINGE. ONE (09:19)
[2020-03-22] MEDS ORDERED: PHENYLEPHRINE 10 MG/ML VIAL. ONE (10:05)
[2020-03-22] MEDS ORDERED: PROPOFOL 50 ML IV ONE (10:47)
[2020-03-22] MEDS ORDERED: DESFLURANE > 120 MINUTES IH ONE (11:19)
[2020-03-22] MEDS: fentaNYL PF VIAL 100 MCG/2 ML VIAL IV PRN ×3 (11:27→19:22)
[2020-03-22] MEDS ORDERED: MORPHINE SULFATE 2 MG/ML VIAL. ONE (11:33)
[2020-03-22] MEDS: MORPHINE SULFATE 2 MG/ML VIAL. IV PRN ×2 (11:43→11:59)
[2020-03-22] MEDS ORDERED: HYDROmorphone 2 MG/ML VIAL ONE (11:48)
[2020-03-22] MEDS: HYDROmorphone 2 MG/ML VIAL IV PRN ×2 (11:51→12:13)
[2020-03-22] MEDS: POTASSIUM CL 20MEQ D5-0.45NACL 1,000 ML IV SCH ×2 (12:11→17:02)
[2020-03-22] MEDS ORDERED: MAGNESIUM HYDROXIDE 2,400 MG/30 ML ORAL.SUSP. PO PRN (12:15)
[2020-03-22] MEDS ORDERED: HYDROcodone/APAP 5/325MG 1 TAB TABLET PO PRN (12:15)
[2020-03-22] MEDS ORDERED: METHOCARBAMOL 750 MG TABLET PO PRN (12:15)
[2020-03-22] MEDS ORDERED: 0.9 % SODIUM CHLORIDE 10 ML DISP.SYRIN. IV PRN (12:15)
[2020-03-22] MEDS ORDERED: CALCIUM CARBONATE 500 MG TAB.CHEW PO PRN (12:15)
[2020-03-22] MEDS ORDERED: MAG HYDROX/ALUMINUM HYD/SIMETH 30 ML ORAL.SUSP PO PRN (12:15)
[2020-03-22] MEDS ORDERED: ACETAMINOPHEN 325 MG TABLET. PO PRN (12:15)
[2020-03-22] MEDS ORDERED: diphenhydrAMINE HCL 25 MG CAPSULE PO PRN (12:15)
[2020-03-22] MEDS ORDERED: NALOXONE 0.4 MG/ML VIAL. IV PRN (12:15)
--- NOTE | 2020-03-22 12:42 | NUR ---
The patient, MICHELLE JASMINE, 39 y/o, F admitted by ISMAEL FLAHERTY MD, was given written information regarding hospital policies, unit procedures and contact persons. Patient admitted at approximately 1248. Patient resting comfortably. Will continue to monitor.
[2020-03-22] MEDS: HYDROcodone/APAP 5/325MG 1 TAB TABLET PO PRN (14:05)
[2020-03-22 15:00] VITALS: BP 95/37
--- NOTE | 2020-03-22 15:34 | OP ---
DATE OF SURGERY: 03/22/2020 PREOPERATIVE DIAGNOSIS: Disc osteophyte complex, left C6-7 with left cervical radiculopathy. POSTOPERATIVE DIAGNOSIS: Disc osteophyte complex, left C6-7 with left cervical radiculopathy. OPERATIONS PERFORMED: Anterior cervical microdiscectomy C6-7, anterior cervical interbody fusion C6-7 with allograft bone; anterior cervical plate C6-7. The operation was done with EMG monitoring, SSEP monitoring, NIMS monitoring, motor evoked potentials, fluoroscopy, and microscopic dissection. SURGEON: Ken Flaherty M.D. MANAGER RESPIRATORY CARE: KEVIN Campbell, assisted with the surgery. She assisted with the exposure, the discectomy as well as the closure. OPERATIVE INDICATIONS: The patient is a pleasant 39-year-old woman who developed intractable neck and left arm pain which was quite severe. When I spoke to her on the morning of the surgery, she stated the pain has improved slightly while she had been virtually immobile for the week prior to the operation, but that she still had a moderate amount of pain and she noted that increasing uncomfortable numbness in her left index finger. We spoke about the pros and cons on the day of her surgery. She wished to go ahead. She understood the risks of the surgery. DESCRIPTION OF PROCEDURE: Following general endotracheal anesthesia, the patient was positioned supine in a neutral position. The anterior cervical region was prepped and draped in the standard fashion. LAMIN hose and AV impulse boots were applied for DVT prophylaxis. The microscope was draped. Fluoroscopy was draped and brought into the field. Monitoring established. Ancef 2 g was given less than 1 hour prior to initiation of surgery. Using fluoroscopic guidance, an incision was made from the midline around to the right side in a small skin crease. I dissected down through skin and subcutaneous tissue. I dissected around the medial aspect of the sternocleidomastoid and carotid artery sheath after sharply dividing a portion of the platysma. I retracted the trachea and esophagus contralaterally and placed anterior cervical retractors at C6-7 and then 14 mm distraction pins in C6-7. I confirmed my position fluoroscopically. I brought in the microscope and the remainder of surgery was done with the microscope using microscopic technique. I incised the anterior annulus with #11 blade. I performed discectomy with pituitary rongeurs. I drilled the posterior spurring. I scraped away the cartilage. I opened the annulus and ligament and worked bilaterally. There was a hard disc bulging down on to the dura on the left side and I trimmed all this material away and I opened the neural foramen. I then measured and placed a 6 mm bone block, which was gently tapped into position, I placed an anterior plate and four 14 mm screws. There was considerable irregularity of the anterior vertebral bodies but the plate was able to be snugged down firmly. I irrigated with antibiotic solution. I then closed the wound in layers with absorbable suture after exploring carefully and assured myself of perfect hemostasis. The wound was closed in layers with absorbable suture. The skin was closed with 4-0 subcuticular stitch. The surgery went very well. KEN FLAHERTY MD DR: TODD/ana JOB#: [id number] / [id number] BIJU
[2020-03-22] MEDS: fentaNYL PF VIAL 100 MCG/2 ML VIAL IVP PRN ×3 (17:01→23:38)
[2020-03-22] MEDS: ceFAZolin SODIUM IV Push 1 GM VIAL. IVP SCH (17:01)
[2020-03-22 19:00] VITALS: BP 109/54
[2020-03-22] MEDS: DOCUSATE SODIUM 100 MG CAPSULE. PO SCH (20:39)
[2020-03-22 23:00] VITALS: BP 99/56
[2020-03-23] MEDS: ceFAZolin SODIUM IV Push 1 GM VIAL. IVP SCH ×2 (00:50→08:30)
[2020-03-23 03:00] VITALS: BP 102/58
[2020-03-23] MEDS: fentaNYL PF VIAL 100 MCG/2 ML VIAL IVP PRN ×3 (03:57→08:31)
[2020-03-23 06:50] VITALS: BP 93/53
[2020-03-23] MEDS: HYDROcodone/APAP 5/325MG 1 TAB TABLET PO PRN (08:30)
[2020-03-23] MEDS: DOCUSATE SODIUM 100 MG CAPSULE. PO SCH (08:30)
[2020-03-23] MEDS ORDERED: PRENATAL MULTIVITAMIN TABLET. PO SCH (09:00)
[2020-03-23] MEDS ORDERED: METH750T2 PO (09:22)
[2020-03-23] MEDS ORDERED: HYDR-2761 PO (09:22)
[2020-03-23] MEDS ORDERED: DOCU-153 PO (09:22)
--- NOTE | 2020-03-23 09:24 | DISCH ---
DISCHARGE INSTRUCTIONS Condition on Discharge Condition on Discharge: Stable Activity After Discharge Activity Instructions for Disc: Activity as tolerated, Avoid exertion Other activity instructions: no driving for a week, soft collar as needed for comfort Bathing Instructions: Shower-keep dressing dry Lifting Instructions after Dis: No heavy lifting, No pulling or pushing, Do not lift >10 pounds Diet after Discharge Additional Diet Restrictions: resume home diet, soft foods Wound Incision Care Wound/Incision Care: Ice to area for comfort Other wound/incision instructi: may remove dressing in 48 hours if dry then may shower, no soaking Contacting the after DC Call your doctor for: Concerns you may have Follow-Up Follow up with: Dr. Flaherty's nurse in 2 weeks [phone] ISMAEL FLAHERTY MD Mar 23, 2020 09:24
--- NOTE | 2020-03-23 10:30 | NUR ---
Discharge instructions and belongings reviewed with patient, verbalized understanding. Patient was escorted out via wheelchair by Josefina DICK accompanied by her .
--- NOTE | 2020-03-25 18:06 | PATHOLOGY ---
[facility] Accession Number: [id number] . 01 Material submitted: . vertebral column - CERVICAL DISC . 01 Clinical history: . Herniated disc with radiculopathy . 02 Diagnosis: Segments of fibrocartilaginous tissue and bone, cervical disc: - Degenerative changes of fibrocartilaginous tissue. (JPM:ji; 03/25/2020) QMS 03/25/2020 1334 Local . 02 Comment: There is no evidence of an acute inflammatory process or malignancy. (JPM:ji; 03/25/2020) . 02 Electronically signed: . Misael Garcia MD, Pathologist NPI- [id number] . 01 Gross description: . The specimen is received in formalin, labeled "GutierrezRivera, Adianez, cervical disc" and consists of pink-willis soft to fibrous tissue and bone measuring 2.6 x 2.6 x 0.6 cm in aggregate which are entirely submitted in A1 following decalcification. (SDY; 03/22/2020) SYU/SYU 03/22/2020 1614 Local . 02 Pathologist provided ICD-10: M50.20, M54.12 . 02 CPT . 334451, 125396 Specimen Comment: A courtesy copy of this report has been sent to [phone], [phone] Specimen Comment: [id number] Specimen Comment: Report sent to / DR UREÑA Performed at: 01 [facility] [address], [place] [id number] MD Darshan Mcdonald MD Phone: [phone] Performed at: 02 [facility] [address] [place], [place] [id number] MD Misael Garcia MD Phone: [phone]
== END 2020-03-23 10:34 | disposition home or self-care (01) ==
LOC: SURG 06:56 → 4 NORTH 12:18
PROVIDERS: ADMIT Neurological Surgery; ATTEND Neurological Surgery
DX: M54.12 Radiculopathy, cervical region (principal)
CPT/HCPCS: 20931; 22551; 22845; 76000; 81025; 96374; 96375; 96376; 97161; A7015; C1713; G0378; G0379; J0330; J0690; J1100; J1170; J2250; J2270; J2370; J2405; J2704; J2710; J3010; J3480; J3490; J7030; J7120; 88304; 88311

== ENCOUNTER → 2020-06-27 | Outpatient (CLI) | payer OTHER ==
[~2020-06-27] MED LIST changes: -BACITRACIN 50,000 UNIT in IV NORMAL SALINE 1000ML BAG 1,000 ML IRR ONE; -DEXAMETHASONE SOD PHOS 20 MG/5 ML VIAL. ONE; +DOCU-153 PO; +HYDR-2761 PO; -LIDOCAINE 2% PF 5 ML VIAL. ONE; +METH750T2 PO; -ONDANSETRON PF 4 MG/2 ML VIAL. ONE; -PHENYLEPHRINE in 0.9% NACL PF 1 MG/10 ML SYRINGE. IV ONE; -PROPOFOL 0 ML IV ONE; -PROPOFOL 10 MG/ML (20ML) VIAL. IV ONE; -REMIFENTANIL 2 MG VIAL. IV ONE; -ROCURONIUM 50 MG/5 ML VIAL. ONE; -SUCCINYLCHOLINE 200 MG/10 ML VIAL. ONE
--- NOTE | 2020-06-27 14:24 | KCIC ---
EXAM: AP, lateral view cervical spine DATE: 06/27/2020 12:00 AM CLINICAL HISTORY: Reason: S/P CERVICAL FUSION 03/2020, NECK PAIN / Spl. Instructions: / History: COMPARISON: None available. FINDINGS: On the lateral view, the cervical spine is imaged from the skull base to C7. Vertebral body heights are preserved. Postoperative changes of ACDF C6-7, in good alignment without definite hardware complication or associated fracture. No definite bony bridging is yet seen. Intervertebral disc heights are otherwise preserved. Straightening of the normal cervical lordosis. No spondylolisthesis. Normal predental space. No significant prevertebral soft tissue swelling. IMPRESSION: Postoperative changes of C6-7 ACDF, in good alignment without definite hardware complication or fracture. Electronically signed by: Jimmy Syed MD (06/27/2020 2:20 PM) [place]
== END | disposition home or self-care (01) ==
LOC: KCIC 10:56
PROVIDERS: ATTEND Neurological Surgery
DX: M43.22 Fusion of spine, cervical region (principal); Z98.1 Arthrodesis status
CPT/HCPCS: 72040